=== PATIENT | male | born 1985 | race Caucasian/White ===

== ENCOUNTER 2020-10-20 12:31 | Emergency (ER) | payer SELFPAY ==
[~2020-10-20] VITALS: Ht 177.8 cm; Wt 90.7 kg
--- NOTE | 2020-10-20 12:31 | NUR ---
PATIENT DELVIN ALS TO ER BED 06
[2020-10-20 12:36] VITALS: BP 101/48
[2020-10-20] MEDS ORDERED: NACL 0.9% 2,000 ML IV ONE (12:40)
--- NOTE | 2020-10-20 12:40 | NUR ---
Dr. Hines at bedside for MSE.
--- NOTE | 2020-10-20 12:42 | NUR ---
pt placed on 2lpm n/c for saturations of 91-92%. sats now 97%.
--- NOTE | 2020-10-20 12:48 | NUR ---
Urinary straight catheterization performed via the sterile technique with 16fr tip. Emptied 450ml of urine. pt tolerated well, no complications.
--- NOTE | 2020-10-20 13:02 | NUR ---
blood cultures, cosme swab collected.
--- NOTE | 2020-10-20 13:12 | NUR ---
see complete assessment.
--- NOTE | 2020-10-20 13:20 | NUR ---
pt taken to CT via rariel.
[2020-10-20 13:30] LABS: BASOPHILS % (AUTO) 0.9 % (0.0-2.0); EOSINOPHILS # (AUTO) 0.1 K/uL (0-0.4); EOSINOPHILS % (AUTO) 1.6 % (0.0-4.0); HEMATOCRIT 36.8 % (36-52); HEMOGLOBIN 12.2 g/dL (12.0-18.0); LYMPHOCYTES # (AUTO) 1.7 K/uL (2.0-11.5); MEAN CORPUSCULAR HEMOGLOBIN 29 pg (27-31); MEAN CORPUSCULAR HGB CONC 33 g/dL (33-37); MEAN CORPUSCULAR VOLUME 86.5 fL (80-94); MONOCYTES # (AUTO) 0.6 K/uL (0.8-1.0); NEUTROPHILS # (AUTO) 3.1 K/uL (1.8-7.7); NEUTROPHILS % (AUTO) 56.5 % (42.2-75.2); PLATELET COUNT (AUTO) 277 K/uL (140-450); RED BLOOD CELL COUNT(AUTO) 4.25 MIL/uL (4.20-6.10); RED CELL DISTRIBUTION WIDTH 14.3 % (11.6-13.7); WHITE BLOOD COUNT (AUTO) 5.6 K/uL (4.8-10.8)
--- NOTE | 2020-10-20 13:35 | NUR ---
PT RETURNED FROM CT AND PLACED IN BED 6. PT PLACED BACK ONTO PATHOLOGY TECHNICIAN, PULSE OXIMETRY AND BLOOD PRESSURE MONITORING. VSS.
[2020-10-20 13:44] LABS: ALBUMIN 3.1 g/dL (3.4-5.0); ANION GAP 16.1 (8-16); CARBON DIOXIDE 24.1 mmol/L (21-32); POTASSIUM 3.2 mmol/L (3.5-5.1); TOTAL BILIRUBIN 0.2 mg/dL (0.0-1.0)
[2020-10-20 13:51] LABS: BARBITURATE, URINE NEGATIVE ng/ml (NEG <=200); BENZODIAZEPINE, URINE NEGATIVE ng/mL (NEG <=200); CANNABINOID, URINE POSITIVE ng/mL (NEG <=50); COCAINE, URINE NEGATIVE ng/mL (NEG <=300); OPIATE, URINE POSITIVE ng/mL (NEG <=2000); PHENCYCLIDINE SCREEN,URINE NEGATIVE ng/mL (NEG <=25)
[2020-10-20 14:02] LABS: SALICYLATE < 2.8 mg/dL (2.8-20.0)
[2020-10-20 14:09] LABS: CREATINE KINASE MB 4.7 ng/mL (0-3.6)
[2020-10-20] MEDS ORDERED: AMMONIA AROMATIC 1 INHL INH ONE (14:53)
--- NOTE | 2020-10-20 15:01 | NUR ---
pt arousable. now a/o x 3, to name time . able to provide demographical info. Dr. Hines made aware.
--- NOTE | 2020-10-20 16:03 | NUR ---
attempted to ambulate pt, unable to get up. ataxic gait observed
[2020-10-20 16:23] VITALS: BP 114/62
--- NOTE | 2020-10-20 17:08 | NUR ---
Patient discharged with v/s stable. Written and verbal after care instructions given and explained. Patient verbalized understanding. Ambulatory with steady gait. All questions addressed prior to discharge. Advised to follow up with PMD.
== END 2020-10-20 17:08 | disposition home or self-care (01) ==
LOC: MED 12:31 → EDBD 12:31 → MED 17:08
DX: F10.129 Alcohol abuse with intoxication, unspecified (principal); Z20.828 Contact with and (suspected) exposure to other viral communicable diseases; F19.10 Other psychoactive substance abuse, uncomplicated
CPT/HCPCS: 36415; 70450; 80053; 80305; 82550; 82553; 84484; 85025; 87040; 87426; 93005; 96360; 99285; G0480; G0482; J7030

== ENCOUNTER 2020-10-21 19:12 | Emergency (ER) | payer SELFPAY ==
[~2020-10-21] VITALS: Ht 177.8 cm; Wt 93.0 kg
--- NOTE | 2020-10-21 19:12 | NUR ---
PT DELVIN BLS. TAKEN TO BED 8
[2020-10-21 19:16] VITALS: BP 141/62
--- NOTE | 2020-10-21 19:25 | NUR ---
PATIENT PRESENTS TO ED WITH WITH C/O ETOH. SEEN HERE YESTERDAY FOR SAME . PT IS ALERT AND ORIENTED, FOLLOWING COMMANDS AND IS PLEASANT. DENIES N/V/D; SKIN IS PINK/WARM/DRY; AAOX4 WITH EVEN AND STEADY GAIT; LUNGS CLEAR BL; HR EVEN AND REGULAR; PT DENIES ANY FEVER, CP, SOB, OR COUGH AT THIS TIME; PATIENT STATES PAIN OF 0/10 AT THIS TIME; VSS; PATIENT POSITIONED FOR COMFORT; HOB ELEVATED; BEDRAILS UP X2; BED DOWN. ER MD MADE AWARE OF PT STATUS. PT VOIDED ON FLOOR.
--- NOTE | 2020-10-21 19:30 | NUR ---
DIET TRAY X 2 PROVIDED
--- NOTE | 2020-10-21 19:40 | NUR ---
READY FOR DISCHARGE
--- NOTE | 2020-10-21 19:40 | NUR ---
PT AMBULATED TO CHAIR C
[2020-10-21 19:55] VITALS: BP 142/66
== END 2020-10-21 19:50 | disposition home or self-care (01) ==
LOC: MED 19:12
DX: F10.129 Alcohol abuse with intoxication, unspecified (principal); Z98.890 Other specified postprocedural states
CPT/HCPCS: 81002; 99283